=== PATIENT | female | born 1985 | race Hispanic/Latino ===

== ENCOUNTER 2017-02-03 18:46 | Emergency (ER) | payer OTHER ==
[2017-02-03 19:44] VITALS: O2SAT 100
[2017-02-03] MEDS ORDERED: Naproxen 500 MG TAB PO ONE (19:50)
--- NOTE | 2017-02-03 19:58 | ED PDOC ---
Lower Extremity Pain/Injury Chief Complaint (Provider): Left Foot Injury History Per: Patient History/Exam Limitations: no limitations Onset/Duration Of Symptoms: Hrs Current Symptoms Are (Timing): Still Present Additional Complaint(s): Christina Santamaria is a 31 year old female that presents to the ED with a chief complaint of left ankle and foot pain that began today as a direct result of walking off of a curb and twisting her ankle. She denies any numbness, tingling , or other injuries. <Surinder Wiseman - Last Filed: 02/03/17 23:18> <Yulissa Shea - Last Filed: 02/06/17 14:28> Time Seen by Provider: 02/03/17 19:50 Chief Complaint (Nursing): Lower Extremity Problem/Injury Supervising Attending Note - Supervising Attending Note The Documented history was done by the: Physician Upsetting Machine Operator The documented physical exam was done by the: Physician Upsetting Machine Operator, Attending Physician The documented procedures were done by the: Physician Upsetting Machine Operator, Attending Physician - Attestation: I have personally seen and examined this patient.: Yes I have fully participated in the care of the patient.: Yes I have reviewed all pertinent clinical information, including history, physical exam and plan: Yes <Yulissa Shea - Last Filed: 02/06/17 14:28> Past Medical History Reviewed: Historical Data, Nursing Documentation, Vital Signs Vital Signs: Last Vital Signs Temp 97.8 F 02/03/17 19:40 Pulse 86 02/03/17 19:40 Resp 16 02/03/17 19:40 BP 137/89 02/03/17 19:40 Pulse Ox 100 02/03/17 19:40 - Medical History PMH: HTN - Family History Family History: States: Unknown Family Hx <Surinder Wiseman - Last Filed: 02/03/17 23:18> Vital Signs: Last Vital Signs Temp 98.4 F 02/03/17 23:14 Pulse 89 02/03/17 23:53 Resp 18 02/03/17 23:53 BP 133/75 02/03/17 23:53 Pulse Ox 100 02/03/17 23:18 <Yulissa Shea - Last Filed: 02/06/17 14:28> - Home Medications Home Medications: Ambulatory Orders Medication Instructions Recorded oxyCODONE/Acetaminophen [Percocet 1 - 2 ea PO Q8 PRN #14 tab 02/03/17 5/325 mg Tab] - Allergies Allergies/Adverse Reactions: Allergies Allergy/AdvReac Type Severity Reaction Status Date / Time No Known Allergies Allergy Verified 02/03/17 19:39 Review of Systems ROS Statement: Except As Marked, All Systems Reviewed And Found Negative Musculoskeletal: Positive for: Leg Pain (left ankle pain), Foot Pain (left foot pain) Neurological: Negative for: Numbness (denies numbness or tingling) <Surinder Wiseman E - Last Filed: 02/03/17 23:18> Physical Exam - Reviewed Nursing Documentation Reviewed: Yes Vital Signs Reviewed: Yes - Physical Exam Appears: Positive for: Non-toxic, No Acute Distress Head Exam: Positive for: ATRAUMATIC, NORMOCEPHALIC Skin: Positive for: Normal Color, Warm. Negative for: Rash Pulses-Dorsalis Pedis (L): 2+ Pulses-Dorsalis Pedis (R): 2+ Extremity: Positive for: Tenderness (mild tenderness of left medial malleolus and medial portion of left foot, no left knee or left leg tenderness), Swelling (mild swelling of left medial malleolus and medial portion of left foot), Other (ecchymosis of left medial malleolus and medial portion of left foot) Neurologic/Psych: Positive for: Alert, Oriented <Surinder Wiseman E - Last Filed: 02/03/17 23:18> - ECG O2 Sat by Pulse Oximetry: 100 (RA) Pulse Ox Interpretation: Normal - Progress ED Course And Treament: L ankle/foot/tibula/fibula x-ray: distal comminuted fibula fx with subluxation. Pt. evaluated by Andrey Sanders, podiatry, who spoke with Dr. Aguilar regarding case. Decision was made to reduce joint which was done with Dr. Shea and Dr. Sanders. Ankle immobilized with splint applied by Dr. Sanders and arrangements made for outpt. f/u with Dr. Cortes on Monday. Crutches and crutch walking instructions given. On re-evaluation just prior to discharge, pt. in no distress. VSS. Offers no complaints. Pt. searched on [place] [employer] which indicate no previous Rx for narcotic medications. Percocet Rx will be given. Discussion of need and use of Percocet was done with patient. Instructed to take Motrin and if pain does not improve she is to take the Percocet. <Surinder Wiseman - Last Filed: 02/03/17 23:18> Medical Decision Making Medical Decision Making: Impression: Left Foot and Left Ankle Injury Plan: * Naproxen 500 mg PO * X-Ray Left Ankle * X-Ray Left Foot * Reevaluation Scribe Attestation: Documented by Crystal Bautista, acting as a scribe for Surinder Wiseman PA-C. Provider Scribe Attestation: All medical record entries made by the Scribe were at my direction and personally dictated by me. I have reviewed the chart and agree that the record accurately reflects my personal performance of the history, physical exam, medical decision making, and the department course for this patient. I have also personally directed, reviewed, and agree with the discharge instructions and disposition. <Surinder Wiseman - Last Filed: 02/03/17 23:18> Disposition - Patient ED Disposition Is Patient to be Admitted: No - Disposition Disposition: Routine/Home Disposition Time: 23:02 <Surinder Wiseman - Last Filed: 02/03/17 23:18> <Yulissa Shea - Last Filed: 02/06/17 14:28> - Clinical Impression Clinical Impression: Ankle fracture - Disposition Referrals: Davidson Cortes MD [Staff Provider] - 02/08/17 (Please make an appointment with Dr. Aguilar.) Isaac Esposito MD [Primary Care Provider] - Condition: STABLE Additional Instructions: Follow up with Dr. Aguilar on Monday WITHOUT FAIL. Prescriptions: oxyCODONE/Acetaminophen [Percocet 5/325 mg Tab] 1 - 2 ea PO Q8 PRN #14 tab PRN Reason: pain Instructions: Ankle Fracture (ED), Crutch Instructions (ED), Deep Sedation (ED) , Splint Care (ED), RICE Therapy (ED), Non Weight Bearing Activity (ED) Forms: [facility] ED School/Work Excuse Print Language: MAURITANIAN ED Procedural Sedation <DominickmartínSurinder Salazar - Last Filed: 02/03/17 23:18> - Pre Anesthesia Assessment Past Medical History: Medications Reviewed, Allergies Reviewed, Record Review Previous Surgies: Reviewed Family History/Social History: Reviewed - Physical Exam/Review of Systems Vital Signs Reviewed: Yes Cardiovascular: Regular Rate and Rhythm, Murmurs, Normal S1, S2 Respiratory/Chest: Clear to Auscultation, Good Air Exchange. denies: Respiratory Distress, Accessory Muscle Use Neurological: GCS=15, CN II-XII Intact, Speech Normal Abdomen: Normal Bowel Sounds. denies: Tenderness, Distention, Peritoneal Signs Mental Status: Alert and Oriented X 3 - Pre-Procedure Airway Assessment History of difficult intubation or surgical airway (i.e trach):: No Inability to extend neck:: No Mouth opening less than two finger breadth:: No Diagnosis of sleep apnea:: No Less than three finger breadth to hyoid bone:: No ASA Criteria: 1 - Healthy, normal. 2 - Mild systemic disease (No functional limitations, mildline obesity, DM withot complications, Hypertention). 3 - Severe systemic disease (Some functional limitation, stable angina, morbid obesity, controlled COPD/Asthma/CHF). 4 - Sever systemic disease constant threat to life (Unstable angina, active symptoms of COPD/Asthma, CHF/ Hypertension. 5 - Moribund ASA Clarification: ASA II Mallampati (airway): Class I - Intra-Procedure (Medications) Medications Given: Discontinued Medications Naproxen (Naproxen) 500 mg PO ONCE ONE Stop: 02/03/17 19:51 Last Admin: 02/03/17 20:33 Dose: Not Given Non-Admin Reason: Patient Refused Oxycodone/Acetaminophen (Percocet 5/325 Mg Tab) 1 tab PO STAT STA Stop: 02/03/17 20:24 Last Admin: 02/03/17 20:32 Dose: 1 tab Re-Assess: INDERJIT Pain Reassessment Document 02/03/17 21:32 HMP (Rec: 02/03/17 23:44 [facility] [id number]) Sleep Is patient sleeping during reassessment? No Pain Reassessment Pain Scale Used Numeric Pain Scale Level 0 Oxycodone/Acetaminophen (Percocet 5/325 Mg Tab) Confirm Administered Dose 1 tab .ROUTE .STK-MED ONE Stop: 02/03/17 20:25 Propofol (Diprivan) 90 mg IV ONCE ONE Stop: 02/03/17 21:45 Last Admin: 02/03/17 22:36 Dose: 90 mg Propofol (Diprivan) Confirm Administered Dose 200 mg .ROUTE .STK-MED ONE Stop: 02/03/17 21:46 Propofol (Diprivan) 60 mg IV ONCE ONE Stop: 02/03/17 22:51 Last Admin: 02/03/17 22:38 Dose: 60 mg - Post-Procedure Post Procedure Note: Pt awake and alert. No nausea. Splinted by podiatry under my supervision and LLE neurovascularly intact post procedure <Yulissa Shea J - Last Filed: 02/06/17 14:28> - Pre Anesthesia Assessment Chief Complaint: Lower Extremity Problem/Injury
[2017-02-03] MEDS ORDERED: Oxycodone/Acetaminophen 5/325 mg Tab PO STA (20:23)
[2017-02-03] MEDS ORDERED: Oxycodone/Acetaminophen 5/325 mg Tab ONE (20:24)
--- NOTE | 2017-02-03 21:17 | CP.PCM.CON ---
History of Present Illness - History of Present Illness History of Present Illness: 31 y/o female seen and evaluated with left foot ankle injury. Patient states that earlier today ( a few hours ago) she was gettin gout of her car. At this time when stepping out of the car her ankle twisted between the curb and the car and she fell backwards. She states at this time she felt a pop and felt enormous amounts of pain. States that they came directly to the ED afterwards and did not walk on it. States that she did eat pizza prior to arriving to the emergency room. Denies any other trauma. Dnies any f/c/n/v/sob. PMH: htn, PSH: breast reduction; no problem with anesthesia Allx: NKFDA Past Patient History - Past Social History Smoking Status: Never Smoked - CARDIAC Hx Hypertension: Yes - PSYCHIATRIC Hx Substance Use: No - ANESTHESIA Hx Anesthesia: No Meds Home Medications: Home Medication List Medication Instructions Recorded Confirmed Type oxyCODONE/Acetaminophen [Percocet 1 - 2 ea PO Q8 PRN #14 tab 02/03/17 Rx 5/325 mg Tab] Allergies/Adverse Reactions: Allergies Allergy/AdvReac Type Severity Reaction Status Date / Time No Known Allergies Allergy Verified 02/03/17 19:39 Physical Exam - Constitutional Appears: Well, Non-toxic, No Acute Distress - Neurological Exam Neurological exam: Alert, Oriented x3 - Psychiatric Exam Psychiatric exam: Normal Affect, Normal Mood - Skin Skin Exam: Intact, Normal Color, Warm - Additional Findings Additional findings: LLE: Vasc: DP 1/4, PT non palpable due to edema, temp gradietn wnl, Cap fill time < 3 s x 5 Derm: There is diffuse ankle edema noted along the lateral, central and medial aspects of the left ankle, there is mild eccymosis noted along the medial aspect of the left ankle, no blistering is noted at this time although there is an underlying erythematous area that does look prone to develope a blister along the medial aspect of the ankle, no erythema, no open lesions, no clinical signs of infection are noted to the area Neuro: able to move digits freely, SWMF 10/10 on left foot Ortho: Liminited due to pain; Results - Vital Signs Recent Vital Signs: Last Vital Signs Temp 97.8 F 02/03/17 19:40 Pulse 86 02/03/17 19:40 Resp 16 02/03/17 19:40 BP 137/89 02/03/17 19:40 Pulse Ox 100 02/03/17 20:01 Assessment & Plan - Assessment and Plan (Free Text) Assessment: 31 y/o female with Left PER type fracture. Plan: Patient evalutaed and chart reviewed Discussed findings in detail with attending Dr. Aguilar x-rays evaluated; labs evaluated. At this time consent was obtained for closed reduction and signed Under guidance of ED attending patient was given conscience sedation and ankle was reducted w/o complication. Portable flouroscopy taken for corrected positioning. Patient placed in J and U splint to hold reduction. Discussion was had in detail with patient that the fracture will need to be surgically fixed; understands. Patient to f/u with Dr. Aguilar in office.
[2017-02-03] MEDS ORDERED: Propofol 10 mg/ml Inj (20 ML) IV ONE ×2 (21:44→22:50)
[2017-02-03] MEDS ORDERED: Propofol 10 mg/ml Inj (20 ML) ONE (21:45)
[2017-02-03 23:23] VITALS: TEMP 98.4
[2017-02-03 23:57] VITALS: BP 133/75; PULSE 89; RESP 18
--- NOTE | 2017-02-04 09:51 | RAD ---
Left ankle radiographs Left foot radiographs Left tibial fibula radiographs Indication: Trauma, patient unable to dorsiflex Comparison: No priors Findings: Comminuted mildly displaced mid to distal fibular diaphyseal fracture deformity. Disruption of the ankle mortise. Extensive soft tissue swelling. No evidence of radiopaque foreign body. Posterior tibial malleoli or fracture noted on lateral view. The remainder of the visualized osseous structures appear intact. No evidence of radiopaque foreign body. Small calcaneal enthesophyte. Impression: Acute fractures involving the distal fibular diaphysis and tibial posterior malleolus. Disruption of the ankle mortise. Extensive soft tissue swelling.
--- NOTE | 2017-02-04 09:59 | RAD ---
PROCEDURE: Left Ankle Radiographs. HISTORY: need for closed reduction COMPARISON: Left ankle radiographs performed 02/03/17 FINDINGS: Comminuted distal fibular diaphyseal fracture deformity. Acute fracture deformity of the posterior malleolus. Soft tissue swelling. The ankle mortise appears in improved alignment. No evidence of radiopaque foreign body. IMPRESSION: The ankle mortise appears improved alignment. Comminuted distal fibular diaphyseal fracture and posterior tibial malleolar fracture re-identified. Soft tissue swelling.
--- NOTE | 2017-02-04 13:07 | CARD ---
APPROVED REPORT EKG Measurement Heart [id number] ID [id number] <Conclusion> Normal sinus rhythm Incomplete right bundle branch block Borderline ECG
--- NOTE | 2017-02-04 16:28 | CT ---
CT left lower extremity without IV contrast, ankle Indication: Trauma, twisted left ankle, pain Technique: Noncontrast axial images of the left ankle were obtained. Sagittal coronal reformatted images were generated and reviewed. Total exam DLP: 259.[address] exam was performed using 1 or more of the following dose reduction techniques: Automated exposure control, adjustment of the MAA and/or kV according to patient size, and/or use of iterative reconstruction technique Comparison: Left ankle radiographs performed 02/03/17 Findings: Acute mildly displaced comminuted fracture deformity of the distal fibular diaphysis. Fracture lines are predominantly obliquely oriented. Distally, fracture lines extend to the anterior portion of the distal meta diaphysis. Acute, mildly displaced comminuted and predominantly vertically-oriented fracture deformity is noted to involve the tibial posterior malleolus. There is disruption of the ankle mortise. Moderate soft tissue swelling. No evidence of radiopaque foreign body. Impression: Acute comminuted displaced fractures of the left distal fibula diaphysis and tibial posterior malleolus. Disruption of ankle mortise. Preliminary impression was provided by virtual radiologic.
== END 2017-02-04 | disposition home or self-care (01) ==
LOC: H.ER 18:46
DX: S82.402A Unspecified fracture of shaft of left fibula, initial encounter for closed fracture (principal); X50.1XXA Overexertion from prolonged static or awkward postures, initial encounter; Y93.01 Activity, walking, marching and hiking; Y92.480 Sidewalk as the place of occurrence of the external cause; I10 Essential (primary) hypertension